=== PATIENT | male | born 1930 | race Caucasian/White ===

== ENCOUNTER → 2016-10-06 | Outpatient (CLI) | payer OTHER ==
[~2016-10-06] MED LIST: ANTIBIOTIC; BENADRYL25 M3 PO; LORTAB 5-325 M1 EACH PO; VITAMIN C500 M1 PO; VITAMIN D-32000 UNIT PO; ZEGERID 20 MG C1 CAP PO
--- NOTE | ~2016-10-06 | CT2 ---
[facility] A Service of [facility] RADIOLOGY TEXT RESULTS PATIENT: ELLE HORN [facility] UNIT #: [id number] AGE: [address]: Nam Ahumada MD SEX: M ORDER DR: [id number] [facility] [address] [place], [place] [address] [id number] O MR#: [id number] Acc #: [id number] NAME: ELLE HORN : 1930 SEX: M STUDY DATE/TIME: 10/06/2016 13:25 UNIT: [facility] ROOM: STUDY DESCRIPTION: CT Abd and Pelv W Cont Attending Physician: Nam Ahumada M.D. Referring Physician: Nam Ahumada M.D. Ordering Physician: Nam Ahumada M.D. Primary Care Physician: Kameron Bernabe Jr., M.D. MEDICAL IMAGING REPORT This report is preliminary unless electronic signature is present EXAM CT abdomen and pelvis with contrast INDICATIONS Restaging rectal cancer. Observation for metastatic disease. PROCEDURE Contrast-enhanced CT of the abdomen and pelvis. COMPARISON None. TECHNIQUE This CT exam was performed with one or more of the following radiation dose reduction techniques: automatic control, adjustment of mA and/or kV according to patient size, and iterative reconstruction. FINDINGS ABDOMEN WITH CONTRAST: Several nodules in the included lung bases. A nodule in the anterior left lower lobe measures 1.8 cm. Hepatic metastatic disease. Dominant lesion in the left hepatic lobe measures up to 6.9 cm. There is also metastatic disease in segment 4/8 junction. Spleen adrenal glands pancreas gallbladder show no acute abnormality. There is severe left-sided hydronephrosis and hydroureter. The left ureter is obstructed at the level of adenopathy in the left common iliac chain. This node measures 1.9 cm. Right renal pelvis is prominent but no obstructing process is seen. The bowel loops are nondilated. Moderately large colonic stool burden with extensive diverticulosis. Suspicion for a mass in the distal [facility] A Service of [facility] RADIOLOGY TEXT RESULTS PATIENT: ELLE HORN LOCATION: [facility] : 28 UNIT #: [id number] AGE: [address]: Nam Ahumada MD SEX: M ORDER DR: descending colon measuring up to 3.3 cm. Circumferential. PELVIS WITH CONTRAST: There is irregular thickening in the rectum. The extent of thickening is difficult to determine on this study measures up to 1.6 cm in thickness and also appears to be at least near circumferential. This mass abuts the posterior margin of the prostate and is inseparable from the prostate gland. No aggressive appearing bone lesion. Age indeterminate compression deformity superior endplate of L4. IMPRESSION 1. Irregular near circumferential thickening in the rectum, suspected to represent the patient's rectal mass. The exact extent of the tumor is difficult to determine on CT. Would be better evaluated with MRI if desired clinically. 2. Suspicion for a second circumferential mass in the distal descending colon, as detailed above. 3. Hepatic metastatic disease. 4. Bibasilar pulmonary nodules suspected to represent metastatic disease. 5. Obstruction of the left mid ureter by adenopathy in the left common iliac chain. The right renal pelvis is prominent but there is no definite obstructing process seen on this study. Dictated by... Salvatore Soriano M.D. THIS IS AN ELECTRONICALLY VERIFIED REPORT Salvatore Soriano M.D. at 10/10/2016 7:02 AM KEON/saul TD: 10/06/2016 23:37 JOB #: [id number] MEDICAL IMAGING REPORT COPY
[2016-10-06 15:10] LABS: POC - CREATININE 1.01 mg/dL (0.64-1.27); POC - GFR >60.0 mL/min (>60)
== END | disposition home or self-care (01) ==
LOC: CCAT 12:18
PROVIDERS: Internal Medicine Medical Oncology
DX: C20 Malignant neoplasm of rectum (principal); C78.7 Secondary malignant neoplasm of liver and intrahepatic bile duct; R91.8 Other nonspecific abnormal finding of lung field; N13.5 Crossing vessel and stricture of ureter without hydronephrosis; R59.0 Localized enlarged lymph nodes
CPT/HCPCS: 74177; 82565; Q9967